=== PATIENT | male | born 1955 | race Caucasian/White ===

== ENCOUNTER 2018-10-16 16:33 | Emergency (ER) | payer OTHER ==
[~2018-10-16] VITALS: Ht 175.3 cm; Wt 75.0 kg
[2018-10-16 18:00] VITALS: BP 126/78
[2018-10-16] MEDS ORDERED: TRAMADOL 50MG TABLET PO ONE (18:00)
== END 2018-10-16 19:20 | disposition home or self-care (01) ==
LOC: ER 16:33
DX: M54.5 Low back pain (principal); M54.2 Cervicalgia; Z88.2 Allergy status to sulfonamides
CPT/HCPCS: 99283